=== PATIENT | female | born 1985 | race Caucasian/White ===

== ENCOUNTER 2018-02-18 20:18 | Emergency (ER) | payer OTHER ==
[2018-02-18] MEDS ORDERED: ONDANSETRON 4 MG/2 ML VIAL IVP ONE (22:15)
[2018-02-18] MEDS ORDERED: LIDOCAINE 2% VISCOUS 15 ML UDCUP PO ONE (22:15)
[2018-02-18] MEDS ORDERED: NS 1,000 ML IV ONE ×2 (22:15→22:53)
[2018-02-18] MEDS ORDERED: HYOSCYAMINE SULFATE 0.125 MG TAB PO ONE (22:15)
[2018-02-18] MEDS ORDERED: MAG HYDROX/AL HYDROX/SIMETH 30 ML UDCUP PO ONE (22:15)
--- NOTE | 2018-02-18 22:15 | EDPHY ---
General - Diagnostics Imaging: Discussed imaging studies w/ spot machine operator Radiologist, I viewed and interpreted images myself - History History Review: I reviewed the patient's medical records Smoking Status: Former smoker Time Seen by Provider: 02/18/18 21:53 Narrative: CHIEF COMPLAINT: Abdominal pain HISTORY OF PRESENT ILLNESS: Patient presents with complaints of epigastric abdominal pain. This started last night but has acutely worsened last 4-5 hours. It is upper abdominal for radiates to both sides. Nausea but no vomiting. No fever chills but no trauma injury. She has had some dark stools with says she has been taking Pepto- Bismol. She has no bright red blood in her stool. She has no blood in her urine. She does have some mild flank pain at times. No other associated complaints or modifying factors. REVIEW OF SYSTEMS: Ten systems reviewed and are negative unless otherwise noted in the HPI PCP: Dr. Ester Solorzano SPECIALISTS: None PAST MEDICAL HISTORY: Bipolar disorder PAST SURGICAL HISTORY: No surgical history SOCIAL HISTORY: Nonsmoker. Occasional marijuana use. No alcohol use. Works as a restaurant hourly team member FAMILY HISTORY: Noncontributory EXAMINATION General Appearance: Alert, no distress. Well-developed well-nourished. Head: normocephalic, atraumatic Eyes: Pupils equal and round, no conjunctival pallor or injection ENT, Mouth: Mucous membranes moist Neck: Normal inspection, supple, non-tender Respiratory: Lungs are clear to auscultation Cardiovascular: Regular rate and rhythm Gastrointestinal: Abdomen is soft and nondistended. There is epigastric tenderness. Minimal CVA tenderness. No guarding. No tympany. No rigidity. Bowel sounds are present all 4 quadrants. No palpable mass. Back: non-tender, no bony abnormalities Neurological: A&O, nonfocal, normal gait Skin: Warm and dry, no rash no petechiae or purpura Extremities: Nontender, no pedal edema Psychiatric: Mood and affect normal DIFFERENTIAL DIAGNOSES: Including but not limited to peptic ulcer disease, gastritis, colitis, enteritis , esophagitis, cholecystitis, cholelithiasis, renal colic, pancreatitis MDM: 9:55 p.m. Epigastric abdominal pain of 2 days duration with some nausea but no vomiting. She reports dark stools but has been taking Pepcid. No bright red stools. Vital signs are within normal limits and she does not meet SIRS criteria. I have ordered laboratory studies, IV fluid, Protonix and GI cocktail. 10:30 p.m. CBC reveals leukocytosis. Chemistry is unremarkable. Urinalysis reveals ketones, microscopic hematuria but no definite infection. 11:00 p.m. Patient re-evaluated. Her pain has improved somewhat with GI cocktail and Protonix. She still rates it as a moderate to severe, thus I have ordered IV pain medication. She is receiving 2nd L of IV fluid and I will discuss with Dr. Kirkland further. 11:50 p.m. Patient has been evaluated by Dr. Kirkland. CT scan of the abdomen pelvis has been ordered she is now having right lower quadrant pain as well. She has consented to this. 12:40 a.m. Notified by radiologist Dr. Woodson. CT scan reveals a 13 mm appendix with no perforation or abscess. Possible mucocele consideration as there is minimal surrounding inflammatory change. I will consult general surgeon. 1:00 a.m. Case discussed with Dr. Nelson. He will come evaluate the patient emergency department. 1:20 a.[address]. At this time Dr. Kirkland will assume care the patient. She is pending surgical evaluation in the emergency department. Suspect that she has an acute appendicitis and will be admitted for such. She is in no acute distress. SUPERVISION: Patient was evaluated and examined in conjunction with my secondary supervising physician as documented. We have both examined the patient. (Beau Mcmullen) Medical Decision Makin: Notified that this patient is a [facility] patient. Spoke with [facility] they are requesting the patient be transferred to [facility]. For potentially acute appendicitis. [id number]: Patient has been accepted at [facility], [place] patient, Dr. Makenna Arambula, has accepted the patient in. Appropriate transfer will be set up. EMTALA filled out. (Andrea Kirkland) - Objective Vital Signs: Initial Vital Signs Temperature (C) 97.9 F 02/18/18 20:25 Heart Rate 61 02/18/18 20:25 Respiratory Rate 22 H 02/18/18 20:25 Blood Pressure 212/75 H 02/18/18 20:25 O2 Sat (%) 96 02/18/18 20:25 O2 Delivery Mode Room Air Allergies/Adverse Reactions: latex Allergy (Verified 02/18/18 20:25) Penicillins Allergy (Verified 02/18/18 20:25) Home Medications: Medication Instructions Recorded LaMICtal 02/18/18 Laboratory Results: Laboratory Results 02/18/18 22:13 02/18/18 22:13 Medications Given: Discontinued Medications Al Hydroxide/Mg Hydroxide (Maalox Susp) 30 ml PO ONCE ONE Stop: 02/18/18 22:16 Last Admin: 02/18/18 22:38 Dose: 30 ml Hyoscyamine Sulfate (Levsin, Hyomax-Sl) 0.25 mg PO ONCE ONE Stop: 02/18/18 22:16 Last Admin: 02/18/18 22:37 Dose: 0.25 mg Sodium Chloride (Ns) 1,000 mls @ 0 mls/hr IV EDNOW ONE; Wide Open PRN Reason: Protocol Stop: 02/18/18 22:16 Last Admin: 02/18/18 22:37 Dose: 1,000 mls Sodium Chloride (Ns) 1,000 mls @ 0 mls/hr IV EDNOW ONE; Wide Open PRN Reason: Protocol Stop: 02/18/18 22:54 Last Admin: 02/18/18 23:18 Dose: 1,000 mls Ertapenem 1 gm/ Sodium (Chloride) 100 mls @ 200 mls/hr IV EDNOW ONE PRN Reason: Protocol Stop: 02/19/18 02:16 Last Admin: 02/19/18 02:24 Dose: 100 mls Lidocaine (Lidocaine 2% Viscous) 15 ml PO ONCE ONE Stop: 02/18/18 22:16 Last Admin: 02/18/18 22:38 Dose: 15 ml Morphine Sulfate (Morphine) 4 mg IVP EDNOW ONE Stop: 02/18/18 23:15 Last Admin: 02/18/18 23:19 Dose: 4 mg Ondansetron HCl (Zofran) 4 mg IVP EDNOW ONE Stop: 02/18/18 22:16 Last Admin: 02/18/18 22:36 Dose: 4 mg Ondansetron HCl (Zofran) 4 mg IVP EDNOW ONE Stop: 02/19/18 02:42 Last Admin: 02/19/18 02:42 Dose: 4 mg Ondansetron HCl (Zofran) 4 mg IVP EDNOW ONE Stop: 02/19/18 02:43 Last Admin: 02/19/18 02:42 Dose: Not Given Pantoprazole Sodium (Protonix) 40 mg IVP EDNOW ONE Stop: 02/19/18 22:16 Last Admin: 02/18/18 22:43 Dose: 40 mg Departure - Departure Disposition: [facility] Clinical Impression: Acute appendicitis Qualifiers: Acute appendicitis type: with localized peritonitis Qualified Code(s): K35.3 - Acute appendicitis with localized peritonitis Condition: Good Referrals: NONE *PRIMARY CARE P,. [Primary Care Provider] - As per Instructions
[2018-02-18 22:33] LABS: PLATELET COUNT 247 10^3/uL (150-400)
[2018-02-18] MEDS ORDERED: PANTOPRAZOLE SODIUM 40 MG VIAL ONE (22:41)
[2018-02-18] MEDS ORDERED: HYOSCYAMINE SULFATE 0.125 MG TAB ONE (22:41)
[2018-02-18] MEDS ORDERED: IOPAMIDOL (ISOVUE-300) 100 ML BTL ONE (23:54)
[2018-02-19] MEDS ORDERED: ERTAPENEM 1 GM in NS 100 ML IV ONE (01:47)
[2018-02-19 02:32] VITALS: BP 114/67
[2018-02-19] MEDS ORDERED: ONDANSETRON 4 MG/2 ML VIAL ONE (02:40)
[2018-02-19] MEDS ORDERED: ONDANSETRON 4 MG/2 ML VIAL IVP ONE ×2 (02:41→02:42)
[2018-02-19] MEDS ORDERED: PANTOPRAZOLE SODIUM 40 MG VIAL IVP ONE (22:15)
== END 2018-02-19 02:46 | disposition short-term general hospital (02) ==
LOC: UNDOADMOB 02-19 01:21
DX: K35.3 Acute appendicitis with localized peritonitis (principal); E86.9 Volume depletion, unspecified; Z87.891 Personal history of nicotine dependence; Z91.040 Latex allergy status
CPT/HCPCS: 96374; J1335; J2270; J2405; Q9967